=== PATIENT | female | born 1995 | race Caucasian/White ===

== ENCOUNTER 2019-08-26 10:25 | Emergency (ER) | payer MEDICAID ==
--- NOTE | 2019-08-26 11:07 | EDM.PDOC ---
ED HPI GENERAL MEDICAL PROBLEM - General Chief Complaint: Respiratory Problem Stated Complaint: SOB, POSSIBLE THROAT SWELLING Time Seen by Provider: 08/26/19 11:03 Source of Information: Reports: Patient History Limitations: Reports: No Limitations - History of Present Illness INITIAL COMMENTS - FREE TEXT/NARRATIVE: pt arrived with a tight feeling in her throat. She is coughing alot and raising some colored sputum. Onset: Other (started 2 days ago. ) Duration: Hour(s): Location: Reports: Face, Neck Associated Symptoms: Reports: Cough Throat Pain Score (Numeric/FACES): 8 - Related Data Allergies Allergy/AdvReac Type Severity Reaction Status Date / Time Sulfa (Sulfonamide Allergy Rash Verified 08/26/19 10:48 Antibiotics) Home Meds: Home Meds hydrOXYzine HCl [hydrOXYzine] 1 tab PO TID PRN 08/26/19 [History] hydroCHLOROthiazide [Hydrochlorothiazide] 1 tab PO DAILY 08/26/19 [History] metFORMIN HCl [Metformin HCl ER] 2 tab PO DAILY 08/26/19 [History] traZODone HCl [Trazodone HCl] 1 tab PO BEDTIME 08/26/19 [History] Past Medical History Respiratory History: Reports: Asthma Genitourinary History: Reports: UTI, Recurrent [employer] History: Reports: Psychiatric History: Reports: Anxiety, Depression, Panic Attack - Past Surgical History HEENT Surgical History: Reports: Tonsillectomy GI Surgical History: Reports: Cholecystectomy Social & Family History - Tobacco Use Smoking Status *Q: Light Tobacco Smoker Years of Tobacco use: 2 Packs/Tins Daily: 0.3 - Caffeine Use Caffeine Use: Reports: None - Recreational Drug Use Recreational Drug Use: No ED ROS GENERAL - Review of Systems Review Of Systems: See Below HEENT: Reports: Throat Pain, Throat Swelling Respiratory: Reports: Cough, Sputum Cardiovascular: Reports: No Symptoms Endocrine: Reports: No Symptoms GI/Abdominal: Reports: No Symptoms : Reports: No Symptoms Musculoskeletal: Reports: No Symptoms Skin: Reports: No Symptoms ED EXAM, GENERAL - Physical Exam Exam: See Below Free Text/Narrative:: pt has a feeling of tightness and swelling in her throat. She states this started in the nite. She felt at one point tht she was having difficulty getting her breath. Exam Limited By: No Limitations General Appearance: Alert, Anxious, Mild Distress Ears: Normal TMs Nose: Normal Inspection Throat/Mouth: Other ( throat looks red in the peritonsilar area. The back of her throat also reveals some swelling. No exudate is present. ) Head: Atraumatic Neck: Normal Inspection Respiratory/Chest: No Respiratory Distress, Rhonchi Cardiovascular: Regular Rate, Rhythm GI/Abdominal: Soft, Non-Tender Course - Vital Signs Last Recorded V/S: Last Vital Signs Temp 36.8 C 08/26/19 10:51 Pulse 95 08/26/19 10:51 Resp 16 08/26/19 10:51 BP 144/50 H 08/26/19 10:51 Pulse Ox 98 08/26/19 10:51 - Orders/Labs/Meds Orders: Active Orders 24 hr Category Date Time Status CULTURE STREP A CONFIRMATION [] Stat Lab 08/26/19 11:11 Results STREP SCRN A RAPID W CULT CONF [] Stat Lab 08/26/19 11:11 Results Labs: Laboratory Tests 08/26/19 Range/Units 11:10 WBC 7.7 (4.5-11.0) K/uL RBC 4.89 (3.30-5.50) M/uL Hgb 13.6 (12.0-15.0) g/dL Hct 40.8 (36.0-48.0) % MCV 83 (80-98) fL MCH 28 (27-31) pg MCHC 33 (32-36) % Plt Count 352 (150-400) K/uL Neut % (Auto) 54 (36-66) % Lymph % (Auto) 30 (24-44) % [place] % (Auto) 12 H (2-6) % Eos % (Auto) 3 (2-4) % Baso % (Auto) 1 (0-1) % Meds: Medications Discontinued Medications Generic Name Dose Route Start Last Admin Trade Name Freq PRN Reason Stop Dose Admin Triamcinolone Acetonide 60 mg 08/26/19 11:40 08/26/19 11:50 Kenalog-40 IM 08/26/19 11:41 60 mg ASDIRECTED ONE Administration - Re-Assessments/Exams Free Text/Narrative Re-Assessment/Exam: 08/26/19 11:46 wbc was not elevated. Her strept is neg. Pt was given kenalog 60 mg im to take the swelling down. 08/27/19 07:50 Departure - Departure Time of Disposition: 11:40 Disposition: Home, Self-Care 01 Condition: Fair Clinical Impression: URI (upper respiratory infection), Throat swelling - Discharge Information Instructions: Upper Respiratory Infection, Adult, [id number] Referrals: PCP,None [Primary Care Provider] - Forms: ED Department Discharge Care Plan Goals: cool mist humidifier, zithromax 500mg now then 250 daily, rtc if increased problems. - My Orders Last 24 Hours: My Active Orders 08/26/19 11:11 CULTURE STREP A CONFIRMATION [RM] Stat STREP SCRN A RAPID W CULT CONF [RM] Stat - Assessment/Plan Last 24 Hours: My Active Orders 08/26/19 11:11 CULTURE STREP A CONFIRMATION [RM] Stat STREP SCRN A RAPID W CULT CONF [RM] Stat
[2019-08-26] MEDS ORDERED: Triamcinolone Acetonide 40 MG/ML 1 ML MDV IM ONE (11:40)
== END 2019-08-26 12:18 | disposition home or self-care (01) ==
LOC: JP.ED 10:25
DX: J06.9 Acute upper respiratory infection, unspecified (principal); J45.909 Unspecified asthma, uncomplicated; F32.9 Major depressive disorder, single episode, unspecified; F17.210 Nicotine dependence, cigarettes, uncomplicated; Z88.2 Allergy status to sulfonamides; Z79.899 Other long term (current) drug therapy
CPT/HCPCS: 36415; 85025; 87081; 87880; 96372; 99284; J3301